=== PATIENT | male | born 1965 | race African-American/Black ===

== ENCOUNTER 2017-06-13 11:55 | Emergency (ER) | payer OTHER, BC ==
[2017-06-13] MEDS: ONDANSETRON ODT 4 MG TAB.RAPDIS. PO (13:17)
[2017-06-13] MEDS: fentaNYL PF VIAL 100 MCG/2 ML VIAL IM (13:19)
== END 2017-06-13 14:30 | disposition home or self-care (01) ==
LOC: ER 11:55
DX: S06.0X0A Concussion without loss of consciousness, initial encounter (principal); S82.401A Unspecified fracture of shaft of right fibula, initial encounter for closed fracture; M79.1 Myalgia; W17.89XA Other fall from one level to another, initial encounter; Y99.0 Civilian activity done for income or pay; Y99.8 Other external cause status; Y92.69 Other specified industrial and construction area as the place of occurrence of the external cause
CPT/HCPCS: 70450; 72125; 73562; 73590; 73700; 93005; 96372; 99284-25; J3010; Q0162